=== PATIENT | female | born 1940 | race Caucasian/White ===

== ENCOUNTER 2016-09-27 22:21 | Observation (INO) | payer MEDICARE ==
[2016-09-27] MEDS ORDERED: ASPIRIN 81 MG CHEWABLE TABLET PO ONE (22:45)
[2016-09-27] MEDS: NITROGLYCERIN 0.4MG SL TABLET #25 BTL SL PRN ×3 (22:52→23:07)
[2016-09-27 22:58] LABS: BASO % 0.4 % (0-6); EOS % 3.2 % (0-6); GRAN % 48.8 % (47-80); HEMOGLOBIN 13.5 gm/dl (11.6-16.0); LYMPH % 34.2 % (16-45); MEAN CELL VOLUME 96.3 fl (81-97); MEAN CORPUSCULAR HGB CONC 32.1 g/dl (32-36); MEAN PLATELET VOLUME 10.5 fl (7.4-10.4); MONO % 13.4 % (0-9); PLATELET COUNT 283 K/uL (130-400); RED BLOOD COUNT 4.36 M/uL (3.80-5.40); WHITE BLOOD COUNT W/O DIFF 7.5 K/uL (4.2-12.2)
[2016-09-27 23:08] LABS: ANION GAP 8.7 (7-16); BLOOD UREA NITROGEN 18 mg/dL (7-17); CARBON DIOXIDE 29.3 mmol/L (22-30); CREATINE PHOSPHOKINASE 75 U/L (30-135); CREATININE 0.7 mg/dL (0.52-1.04); EST GLOMERULAR FILTRATION RATE > 60 ml/min; GLUCOSE,RANDOM 94 mg/dL (70-110)
[2016-09-27 23:09] LABS: ALBUMIN 4.3 gm/dL (3.5-5.0); BILIRUBIN,TOTAL 0.41 mg/dL (0.2-1.3); TOTAL PROTEIN 7.6 gm/dL (6.3-8.2)
[2016-09-27 23:29] LABS: TROPONIN I < 0.012 ng/mL (0.00-0.034)
--- NOTE | 2016-09-28 00:36 | Emergency Department Record ---
History of Present Illness - General Chief Complaint: Chest Pain Stated Complaint: CHEST PAIN Time Seen by Provider: 09/27/16 22:24 Source: Patient Mode of Arrival: Wheelchair Limitations: No limitations - History of Present Illness Initial Comments: pt developed chest pain an hour lpta that felt heavy and radiated to her neck with no n or sob. Complaint: Chest pain Onset/Timin -: Hour(s) Onset: During rest Pain Location: Substernal Pain Radiation: Back, Neck Severity: Moderate Quality: Other Consistency: Constant Improves With: Nothing Worsens With: Nothing Other Symptoms: Burping - Related Data Home Medications Medication Instructions Recorded Confirmed Last Taken Acetaminophen 325 mg PO ASDIR PRN 09/27/16 09/27/16 Unknown Gael/D3/Mag11/Zinc/Pneumatic Drum Sander/Asim/Bor 1 each PO DAILY 09/27/16 09/27/16 Unknown [Caltrate 600+D Plus Tablet] Cyanocobalamin (Vitamin B-12) 1 tab PO DAILY 09/27/16 09/27/16 Unknown [Vitamin B-12] Glucosamine HCl 2,000 mg PO DAILY 09/27/16 09/27/16 Unknown Levothyroxine Sodium [Synthroid] 75 mcg PO DAILY 09/27/16 09/27/16 Unknown Losartan Potassium [Losartan 25 mg PO DAILY 09/27/16 09/27/16 Unknown Potassium] Magnesium 1 tab PO DAILY 09/27/16 09/27/16 Unknown Montelukast Sodium 10 mg PO DAILY 09/27/16 09/27/16 Unknown Raloxifene HCl [Evista] 60 mg PO DAILY 09/27/16 09/27/16 Unknown Rosuvastatin Calcium [Crestor] 0.25 tab PO DAILY 09/27/16 09/27/16 Unknown Sertraline HCl [Zoloft] 25 mg PO DAILY 09/27/16 09/27/16 Unknown Zinc 50 mg PO DAILY 09/27/16 09/27/16 Unknown Allergies Allergy/AdvReac Type Severity Reaction Status Date / Time No Known Drug Allergies Allergy Verified 09/27/16 22:32 Travel Screening - Travel/Exposure Within Last 30 Days Have you traveled within the last 30 days?: No - Travel/Exposure Within Last Year Have you traveled outside the [place] in the last year?: No - Additonal Travel Details Have you been exposed to anyone with a communicable illness?: No - Travel Symptoms Symptom Screening: None Review of Systems Reviewed: No additional complaints except as noted below Constitutional: Reports: As per HPI. Denies: Chills, Fever, Malaise, Night sweats, Weakness, Weight change Eyes: Reports: As per HPI. Denies: Eye discharge, Eye pain, Photophobia, Vision change ENT: Reports: As per HPI. Denies: Congestion, Dental pain, Ear pain, Epistaxis , Hearing loss, Throat pain Respiratory: Reports: As per HPI. Denies: Cough, Dyspnea, Hemoptysis, Stridor, Wheezes Cardiovascular: Reports: As per HPI. Denies: Arrhythmia, Chest pain, Dyspnea on exertion, Edema, Murmurs, Orthopnea, Palpitations, Paroxysmal nocturnal dyspnea, Rheumatic Fever, Syncope Endocrine: Reports: As per HPI. Denies: Fatigue, Heat or cold intolerance, Polydipsia, Polyuria Gastrointestinal: Reports: As per HPI. Denies: Abdominal pain, Constipation, Diarrhea, Hematemesis, Hematochezia, Melena, Nausea, Vomiting Genitourinary: Reports: As per HPI. Denies: Abnormal menses, Discharge, Dyspareunia, Dysuria, Frequency, Hematuria, Incontinence, Retention, Urgency Musculoskeletal: Reports: As per HPI. Denies: Arthralgia, Back pain, Gout, Joint swelling, Myalgia, Neck pain Skin: Reports: As per HPI. Denies: Bruising, Change in color, Change in hair/ nails, Lesions, Pruritus, Rash Neurological: Reports: As per HPI. Denies: Abnormal gait, Confusion, Headache, Numbness, Paresthesias, Seizure, Tingling, Tremors, Vertigo, Weakness Psychiatric: Reports: As per HPI. Denies: Anxiety, Auditory hallucinations, Depression, Homicidal thoughts, Suicidal thoughts, Visual hallucinations Hematological/Lymphatic: Reports: As per HPI. 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) - NEURO Hx Neuro Disorders: No - GI Hx GI Disorders: No - Hx Genitourinary Disorders: No - ENDOCRINE Hx Endocrine Disorders: Yes Hx Thyroid Disease: Yes - MUSCULOSKELETAL Hx Musculoskeletal Disorders: No - PSYCH Hx Psych Problems: No - HEMATOLOGY/ONCOLOGY Hx Hematology/Oncology Disorders: No Family Medical History Any Significant Family History?: No Physical Exam - General General Appearance: Alert, Oriented x3, Cooperative, Mild distress - Head Head exam: Normal inspection - Eye Eye exam: Normal appearance, PERRL, EOMI Pupils: Normal accommodation - ENT ENT exam: Normal exam, Mucous membranes moist, Normal external ear exam, Normal orophraynx Ear exam: Normal external inspection. negative: External canal tenderness Nasal Exam: Normal inspection. negative: Discharge, Sinus tenderness Mouth exam: Normal external inspection, Tongue normal Teeth exam: Normal inspection. negative: Dental caries Throat exam: Normal inspection. negative: Tonsillar erythema, Tonsillar exudate - Neck Neck exam: Normal inspection, Full ROM. negative: Tenderness - Respiratory Respiratory exam: Normal lung sounds bilaterally. negative: Respiratory distress - Cardiovascular Cardiovascular Exam: Regular rate, Normal rhythm, Normal heart sounds - GI/Abdominal GI/Abdominal exam: Soft, Normal bowel sounds. negative: Tenderness - Rectal Rectal exam: Deferred - exam: Deferred - Extremities Extremities exam: Normal inspection, Full ROM, Normal capillary refill. negative: Tenderness - Back Back exam: Reports: Normal inspection, Full ROM. Denies: Muscle spasm, Rash noted, Tenderness - Neurological Neurological exam: Alert, CN II-XII intact, Normal gait, Oriented X3 - Psychiatric Psychiatric exam: Normal affect, Normal mood - Skin Skin exam: Dry, Intact, Normal color, Warm Course Vital Signs 09/27/16 09/27/16 09/27/16 22:23 22:26 22:58 Temperature 98.4 F 98 F Pulse Rate 67 Pulse Rate [ Contract Associate Manager ] Pulse Rate [ 73 67 Pulse Ox Probe] Respiratory 20 20 20 Rate Blood Pressure 173/82 Blood Pressure 173/82 127/74 [Left Arm] Pulse Ox 99 99 97 09/27/16 09/27/16 09/27/16 23:05 23:10 23:54 Temperature Pulse Rate Pulse Rate [ 62 Contract Associate Manager ] Pulse Rate [ 76 77 Pulse Ox Probe] Respiratory 20 20 20 Rate Blood Pressure Blood Pressure 126/80 116/71 123/75 [Left Arm] Pulse Ox 97 97 99 - Reevaluation(s) Reevaluation #1: 09/28/16 00:35 pts pain improved w ntg. Medical Decision Making - Lab Data Result diagrams: 09/27/16 22:40 09/27/16 22:40 Lab Results 09/27/16 09/27/16 09/27/16 Range/Units 22:40 22:40 22:40 WBC 7.5 (4.2-12.2) K/uL RBC 4.36 (3.80-5.40) M/uL Hgb 13.5 (11.6-16.0) gm/dl Hct 42.0 (35.0-47.0) % MCV 96.3 (81-97) fl MCH 31.0 (27-33) pg MCHC 32.1 (32-36) g/dl RDW 13.0 (11.5-14.5) % Plt Count 283 (130-400) K/uL MPV 10.5 H (7.4-10.4) fl Gran % 48.8 (47-80) % Lymphocytes % 34.2 (16-45) % Monocytes % 13.4 H (0-9) % Eosinophils % 3.2 (0-6) % Basophils % 0.4 (0-6) % D-Dimer 0.49 (0-0.59) mg/L FEU Sodium 143 (136-145) mmol/L Potassium 4.1 (3.5-5.1) mmol/L Chloride 105 (98-107) mmol/L Carbon Dioxide 29.3 (22-30) mmol/L Anion Gap 8.7 (7-16) BUN 18 H (7-17) mg/dL Creatinine 0.7 (0.52-1.04) mg/dL Estimated GFR > 60 ml/min Random Glucose 94 (70-110) mg/dL Calcium 9.4 (8.5-10.1) mg/dL Total Bilirubin (0.2-1.3) mg/dL Direct Bilirubin (0-0.3) mg/dL AST (14-36) U/L ALT (9-52) U/L Alkaline Phosphatase (38-126) U/L Creatine Kinase 75 (30-135) U/L CK-MB (CK-2) 1.0 (0-6) ug/L Myoglobin 40.7 (0.0-61.5) ng/mL Troponin I < 0.012 (0.00-0.034) ng/mL NT-Pro-B Natriuret Pep 46.20 (<125) pg/mL Total Protein (6.3-8.2) gm/dL Albumin (3.5-5.0) gm/dL 09/27/16 Range/Units 22:40 WBC (4.2-12.2) K/uL RBC (3.80-5.40) M/uL Hgb (11.6-16.0) gm/dl Hct (35.0-47.0) % MCV (81-97) fl MCH (27-33) pg MCHC (32-36) g/dl RDW (11.5-14.5) % Plt Count (130-400) K/uL MPV (7.4-10.4) fl Gran % (47-80) % Lymphocytes % (16-45) % Monocytes % (0-9) % Eosinophils % (0-6) % Basophils % (0-6) % D-Dimer (0-0.59) mg/L FEU Sodium (136-145) mmol/L Potassium (3.5-5.1) mmol/L Chloride (98-107) mmol/L Carbon Dioxide (22-30) mmol/L Anion Gap (7-16) BUN (7-17) mg/dL Creatinine (0.52-1.04) mg/dL Estimated GFR ml/min Random Glucose (70-110) mg/dL Calcium (8.5-10.1) mg/dL Total Bilirubin 0.41 (0.2-1.3) mg/dL Direct Bilirubin 0.0 (0-0.3) mg/dL AST 20 (14-36) U/L ALT 18 (9-52) U/L Alkaline Phosphatase 82 (38-126) U/L Creatine Kinase (30-135) U/L CK-MB (CK-2) (0-6) ug/L Myoglobin (0.0-61.5) ng/mL Troponin I (0.00-0.034) ng/mL NT-Pro-B Natriuret Pep (<125) pg/mL Total Protein 7.6 (6.3-8.2) gm/dL Albumin 4.3 (3.5-5.0) gm/dL Disposition Disposition: Admit Clinical Impression: Chest pain Qualifiers: Chest pain type: unspecified Qualified Code(s): R07.9 - Chest pain, unspecified Disposition: Still a Patient at [facility] Decision to Admit: Admit from ER Decision to Admit Date: 09/28/16 Decision to Admit Time: 01:13 Forms: Patient Portal Access
[2016-09-28] MEDS ORDERED: NITROGLYCERIN 0.4MG SL TABLET #25 BTL SL PRN (01:52)
[2016-09-28] MEDS ORDERED: TEMAZEPAM 15 MG CAPSULE PO PRN (01:52)
--- NOTE | 2016-09-28 08:13 | RADIOLOGY REPORT ---
EXAM: CHEST, TWO VIEWS HISTORY: DIFFICULTY BREATHING. TECHNIQUE: Frontal and lateral views of the chest were obtained. Comparison: None. FINDINGS: The heart size is normal. Osteopenia. Tiny bibasilar effusions seen on the lateral view. COPD. No pneumothorax. IMPRESSION: COPD. TINY BIBASILAR EFFUSIONS. JOB NUMBER: [id number] MTDD
[2016-09-28 09:12] LABS: LDL CHOLESTEROL/MEASURED 77.7 mg/dL (0-100)
[2016-09-28] MEDS ORDERED: ACETAMINOPHEN 325 MG TAB PO PRN (09:24)
[2016-09-28] MEDS ORDERED: ASPIRIN 325 MG TAB ENTERIC-COATED PO SCH (10:00)
[2016-09-28] MEDS ORDERED: SERTRALINE HCL 50 MG TABLET PO SCH (10:00)
[2016-09-28] MEDS ORDERED: LOSARTAN POTASSIUM 25 MG TABLET PO SCH ×2 (10:00)
[2016-09-28] MEDS ORDERED: LEVOTHYROXINE SODIUM 75 MCG TABLET PO SCH (10:00)
--- NOTE | 2016-09-28 12:13 | Discharge Note ---
VTE H&P Assessment - Risk for VTE Risk for VTE: No Risk Level: Very Low Risk Assessment Date: 09/27/16 Risk Assessment Time: 08:10 VTE Orders Placed or Will Be Placed: No VTE Reason for No Prophylaxis: Not Indicated Discharge Medications - Discharge Medications Prescriptions: Aspirin [Aspirin EC] 325 mg PO DAILY #30 tablet. Nitroglycerin [Nitrostat] 0.4 mg SL ASDIR #30 tab.subl Home Medications: Ambulatory Orders Acetaminophen 325 mg PO ASDIR PRN 09/27/16 [Last Taken Unknown] Gael/D3/Mag11/Zinc/Medical Resident/Asim/Bor [Caltrate 600+D Plus Tablet] 1 each PO DAILY 11/06 [Last Taken Unknown] Cyanocobalamin (Vitamin B-12) [Vitamin B-12] 1 tab PO DAILY 09/27/16 [Last Taken Unknown] Glucosamine HCl 2,000 mg PO DAILY 09/27/16 [Last Taken Unknown] Levothyroxine Sodium [Synthroid] 75 mcg PO DAILY 09/27/16 [Last Taken Unknown] Losartan Potassium 12.5 mg PO DAILY 09/27/16 [Last Taken Unknown] Magnesium 1 tab PO DAILY 09/27/16 [Last Taken Unknown] Montelukast Sodium 10 mg PO DAILY 09/27/16 [Last Taken Unknown] Raloxifene HCl [Evista] 60 mg PO DAILY 09/27/16 [Last Taken Unknown] Rosuvastatin Calcium [Crestor] 0.25 tab PO DAILY 09/27/16 [Last Taken Unknown] Sertraline HCl [Zoloft] 25 mg PO DAILY 09/27/16 [Last Taken Unknown] Zinc 50 mg PO DAILY 09/27/16 [Last Taken Unknown] Aspirin [Aspirin EC] 325 mg PO DAILY #30 tablet. 09/28/16 [Last Taken Unknown] Nitroglycerin [Nitrostat] 0.4 mg SL ASDIR #30 tab.subl 09/28/16 [Last Taken Unknown] Discharge Note - Date Date of Discharge Note: 09/28/16 Disposition: Home, Self-Care Condition: (1) Good Additional Instructions: consult with Dr Sanchez tomorrow for a stress test Only walking till stress test is done follow up with Dr. Cheatham in one week Prescriptions: Aspirin [Aspirin EC] 325 mg PO DAILY #30 tablet. Nitroglycerin [Nitrostat] 0.4 mg SL ASDIR #30 tab.subl Referrals: ERIN ROMERO [Primary Care Provider] - Forms: Patient Portal Access
[2016-09-28] MEDS ORDERED: MONTELUKAST SODIUM 10MG TABLET PO SCH (22:00)
[2016-09-28] MEDS ORDERED: ROSUVASTATIN 5 MG PO SCH (22:00)
[2016-09-28] MEDS ORDERED: RALOXIFENE 60 MG PO SCH (22:00)
--- NOTE | 2016-09-29 10:15 | History and Physical Report ---
DATE OF EVALUATION: 09/28/2016 at 7:30 a.m. DATE OF ADMISSION: 09/28/2016 CHIEF COMPLAINT: Chest pain. HISTORY OF CHIEF COMPLAINT: This 76-year-old female yesterday was sitting at about 4:30 taking a nap in a chair. She felt a funny feeling in her throat. Then the felt some heaviness in her chest. It seemed to go away. At about 9 p.m., she developed some heaviness in her chest again with some radiation up into her throat. Came to the Emergency Department and evaluated by Dr. Robbins. Given 3 nitroglycerin at 90% to 100% gone at that time. Patient was then admitted to the hospital. When I went in to see her at 7:30 a.m. this morning, she was sleeping. She woke up and said she was feeling much better. No chest pain or no neck pain. She states that she does exercise 3 times a week on a treadmill for 30 minutes and no problems with that. The last time she walked on the treadmill was about a week ago, though, and she has starting some exercise, kind of stretching exercises, but she does not think she hurt herself doing any of that. The first set of cardiac enzymes were negative. EKG showing normal sinus rhythm with no acute changes, and also this morning's EKG was normal sinus rhythm with no acute changes. PAST MEDICAL HISTORY: She has had asthma the last 5 or 6 years. Hypercholesterolemia. Hypothyroidism. Hypertension. She has had a history of atrial fibrillation about 10 or 15 years ago, caffeine-induced. Treated by Dr. Fazal MUSE. Currently, she sees Dr. Tray Gomez. PAST SURGICAL HISTORY: Hysterectomy, cholecystectomy, breast biopsy, bilateral bunionectomy. MEDICATIONS ON ADMISSION: Calcium and vitamin D 1 a day, sertraline 25 mg daily, glucosamine chondroitin 2000 mg a day, Crestor quarter-tablet daily (I assume that is 5 mg or 10 mg, it is hard to imagine a quarter of a tablet), Evista 60 mg daily, Singulair 10 mg daily, losartan 25 mg daily, and levothyroxine 75 mcg daily. Also, zinc 50 mg daily, cyanocobalamin 1 tablet a day, magnesium 1 tablet a day, Tylenol p.r.n. ALLERGIES: No known drug allergies. FAMILY PSYCHOSOCIAL HISTORY: She has never smoked cigarettes. No alcohol or drug use. There is no significant family history. REVIEW OF SYSTEMS: HEENT: No upper respiratory infection symptoms, cough, cold, or congestion. Cardiovascular: See Chief Complaint. She had some neck pain and chest heaviness radiating up into the neck. Gone at this time. Respiratory: No cough, cold or congestion. Gastrointestinal: No nausea, vomiting, diarrhea, black stools, or bloody stools. Genitourinary: No dysuria, hematuria, frequency, or burning on urination. Musculoskeletal: No joint or bony abnormalities. Neurologic: No CVA, paralysis, or paresthesias. Endocrine: She has hypothyroidism. No diabetes. Integument: No rash, ulcers, changes in moles, or yellow skin. PHYSICAL EXAMINATION: VITAL SIGNS: Height is 5'2". Weight 147 pounds. Pulse 58-67. Blood pressure 133/64. Respiratory rate 12. Pulse ox 97% on room air. HEENT: Pupils equal, round, and reactive to light and accommodation. Extraocular muscles intact. Funduscopic exam is benign. Tympanic membranes hamilton. NECK: Supple. No jugular venous distention. No hepatojugular reflux. No carotid bruits. Thyroid is smooth. CARDIOVASCULAR: Regular rate and rhythm without murmurs, clicks, rubs, or gallops. RESPIRATORY: Clear to auscultation and percussion. ABDOMEN: Soft, nontender, no hepatosplenomegaly. No masses or tenderness. Bowel sounds active. No bruits. EXTREMITIES: No pitting edema. No cyanosis or clubbing. Full range of motion. Peripheral pulses good. BREASTS: Deferred. GYNECOLOGIC: Deferred. RECTAL: Deferred. NEUROLOGIC: Cranial nerves II-XII intact. No gross deficits. Sensation normal. Strength normal. Deep tendon reflexes equal bilaterally. Babinski is negative. MENTAL STATUS: Alert and oriented x3. IMPRESSION: 1. Chest pain, none at this time. 2. Possible angina. 3. History of hypertension. 4. History of hypercholesterolemia. 5. History of hypothyroidism. 6. History of asthma. PLAN: Serial cardiac enzymes. Will discuss the case with Dr. Gomez and possibly referral for stress test. Patient did request to go home today. [facility]
--- NOTE | 2016-09-30 11:00 | Discharge Summary ---
DATE OF SERVICE: 09/28/2016. ATTENDING PHYSICIAN: Costa Reyes DO. DISCHARGE DIAGNOSES: 1. Chest pain. 2. Stable angina. 3. Myocardial infarction ruled out. 4. Status post hypercholesterolemia. 5. Status post hypothyroidism. 6. Status post asthma. 7. Status post anxiety. CHIEF COMPLAINT: Chest pain. The chest pain started about 4:30 p.m. yesterday. Small episode of it with a little tightness in her neck. She had another episode about 9 p.m. with tightness in her neck and heaviness in her chest. She became concerned. Came in to the ER for evaluation. Seen by Dr. Robbins. Given 3 nitroglycerin sublingual. Pretty much took the chest pain away. She is chest pain free today at my examination. She is feeling much better, however, concerned this sounds like angina. CURRENT MEDICATIONS: Continue her home medications and also an aspirin a day at 325 daily. Her home medications are: 1. Levothyroxine 75 mcg q.daily. 2. Losartan 25 mg q.daily. 3. Singulair 10 mg q.daily. 4. Evista 60 mg q.daily. 5. Crestor 5 mg tablets 1/4 of a tablet q.daily. 6. Glucosamine and chondroitin 2000 mg per day. 7. Sertraline 25 mg q.daily. 8. Calcium with vitamin D once a day. 9. Cyanocobalamin 1 a day. 10. Magnesium 1 a day. 11. Zinc 50 mg once a day. 12. Tylenol p.r.n. HOSPITAL COURSE: Therapy provided: Patient was monitored, cardiac monitoring, serial cardiac enzymes. She had 2 cardiac enzymes, which were negative, both troponin-I and CK-MB. Her EKGs x 2 were normal sinus rhythm with no acute changes. She is chest pain free. Would like to go home. Will follow up with Dr. Sanchez. She had seen Dr. Diehl about 10 years ago for an episode of atrial fibrillation secondary to caffeine. Will consult Dr. Sanchez for a stress test, hopefully in the morning. CONDITION AT DISCHARGE: Stable and improved. DISCHARGE INSTRUCTIONS: 1. Followup with Dr. Sanchez tomorrow for a stress test. 2. Followup with Dr. Gomez, her primary doctor, in 1 week. 3. Patient is to return to the emergency department if she has more chest pain, for reevaluation. [facility]
== END 2016-09-28 15:22 | disposition home or self-care (01) ==
LOC: ER 22:21 → MEDSURG 09-28 01:50
PROVIDERS: ADMIT Emergency Medicine; ATTEND Emergency Medicine
DX: R07.9 Chest pain, unspecified (principal); I20.8 Other forms of angina pectoris; E78.00 Pure hypercholesterolemia, unspecified; E03.9 Hypothyroidism, unspecified; J45.909 Unspecified asthma, uncomplicated
CPT/HCPCS: 93041; 99285 ×2; 94760 ×2; 82550; 85025; 80076; 83874; 82553 ×2; 84484 ×2; 80048; 80061; 85379; 83880; 71020; 93005 ×2; 93010 ×2; G0378; 99236

== ENCOUNTER 2018-02-04 09:23 | Day surgery (SDC) | payer MEDICARE ==
[2018-02-04] MEDS ORDERED: PROPOFOL 10 MG/ML VIAL IV ONE (09:24)
[2018-02-04] MEDS ORDERED: LIDOCAINE 2% MDV (20MG/ML) 20ML VIAL IV ONE (09:24)
--- NOTE | 2018-02-05 10:00 | Operative Note ---
DATE OF SURGERY: 02/04/2018 OPERATION: COLONOSCOPY to the cecum. INDICATION: Colorectal cancer screening. Last examination was 8 years ago. ANESTHESIA: Intravenous sedation was administered by the department of anesthesiology and included Diprivan titrated to effect. PROCEDURE: Following informed consent from this alert individual including a discussion of the risks and benefits of the procedure and an opportunity for the patient to ask questions, the patient was in the left lateral decubitus position. A digital rectal examination was performed. No abnormalities were noted. Following this, the Olympus [id number] video colonoscope was inserted into the rectum without resistance. The rectal mucosa had a normal appearance with normal folds and distensibility. The colonoscope was advanced up through the colon to the level of the cecum without much difficulty, although there was some redundancy to the colon and abdominal pressure support was supplied by the nursing staff to facilitate reaching the cecum. Throughout the bowel the mucosa appeared normal, the folds were normal, and the bowel was fairly well distensible. There were scattered diverticula noted in the sigmoid colon. The cecum was defined by noting the appendiceal orifice and ileocecal valve. The colon preparation overall was good. Some washing and suctioning was employed to facilitate adequate visualization. From the cecum, the colonoscope was then slowly withdrawn. No abnormalities were detected until the sigmoid colon was reached. Again diverticulosis was noted. Retroflexion in the rectum was endoscopically unremarkable. The instrument was straightened and removed. The patient tolerated the procedure well and was returned to the recovery area in stable condition. IMPRESSION: 1. Sigmoid diverticulosis. 2. Otherwise unremarkable colonoscopy to the cecum. RECOMMENDATIONS: The patient was advised to have screening colonoscopy in 10 years' time if she desires at age 87. Followup will be with Dr. Tray Gomez. As always, thank you for allowing me to participate in the care of your patient. CC: Dr. Tray CARTY
== END 2018-02-04 12:02 | disposition home or self-care (01) ==
LOC: HOP 09:23
PROVIDERS: ATTEND Internal Medicine Gastroenterology
DX: Z12.11 Encounter for screening for malignant neoplasm of colon (principal); K57.30 Diverticulosis of large intestine without perforation or abscess without bleeding
CPT/HCPCS: 00812; G0121

== ENCOUNTER 2018-04-22 13:11 | Emergency (ER) | payer MEDICARE ==
[2018-04-22] MEDS ORDERED: ASPIRIN 81 MG CHEWABLE TABLET PO ONE (13:31)
[2018-04-22 13:45] LABS: BASO % 0.4 % (0-6); EOS % 2.6 % (0-6); GRAN % 51.5 % (47-80); HEMATOCRIT 41.5 % (35.0-47.0); HEMOGLOBIN 13.7 gm/dl (11.6-16.0); LYMPH % 36.4 % (16-45); MEAN CELL VOLUME 96.1 fl (81-97); MEAN CORPUSCULAR HEMOGLOBIN 31.7 pg (27-33); MEAN PLATELET VOLUME 10.3 fl (7.4-10.4); MONO % 9.1 % (0-9); PLATELET COUNT 281 K/uL (130-400); RED BLOOD COUNT 4.32 M/uL (3.80-5.40); RED CELL DISTRIBUTION WIDTH 13.5 % (11.5-14.5); WHITE BLOOD COUNT W/O DIFF 7.4 K/uL (4.2-12.2)
[2018-04-22 13:53] LABS: BLOOD UREA NITROGEN 16 mg/dL (8-23); CREATININE 0.6 mg/dL (0.5-0.9); EST GLOMERULAR FILTRATION RATE > 60 mL/min
[2018-04-22 13:56] LABS: GLUCOSE,RANDOM 117 mg/dL (74-109)
[2018-04-22 13:59] LABS: CREATINE PHOSPHOKINASE 68 U/L (26-192)
[2018-04-22 14:00] LABS: CKMB 2.9 ng/mL (<3.77)
[2018-04-22 14:11] LABS: THYROID STIMULATING HORMONE 0.47 uIU/mL (0.270-4.20)
--- NOTE | 2018-04-22 16:38 | Emergency Department Record ---
History of Present Illness - General Chief Complaint: Rapid heartbeat Stated Complaint: RAPID HEART BEAT Time Seen by Provider: 04/22/18 13:20 Source: Patient Mode of Arrival: Ambulatory Limitations: No limitations - History of Present Illness Initial Comments: pt has been having palpitations last night after she had part of a drink. once again it started up today. she denies cp. she states she listened to her heart and it sounded irregular. she tried holding her breath and putting her face into ice water without success MD Complaint: Palpitations Context: Occurred during rest Arrythmia History: Other (she has had rapid hr) Associated Symptoms: Denies other symptoms - Related Data Previous Rx's Medication Instructions Recorded Amiodarone HCl [Pacerone] 200 mg PO BID #20 tablet 04/22/18 Apixaban [Eliquis] 5 mg PO BID #20 tablet 04/22/18 Allergies Allergy/AdvReac Type Severity Reaction Status Date / Time No Known Drug Allergies Allergy Verified 04/22/18 13:19 Travel Screening - Travel/Exposure Within Last 30 Days Have you traveled within the last 30 days?: No Review of Systems Reviewed: No additional complaints except as noted below Constitutional: Reports: As per HPI. Denies: Chills, Fever, Malaise, Night sweats, Weakness, Weight change Eyes: Reports: As per HPI. Denies: Eye discharge, Eye pain, Photophobia, Vision change ENT: Reports: As per HPI. Denies: Congestion, Dental pain, Ear pain, Epistaxis , Hearing loss, Throat pain Respiratory: Reports: As per HPI. Denies: Cough, Dyspnea, Hemoptysis, Stridor, Wheezes Cardiovascular: Reports: As per HPI, Palpitations. Denies: Arrhythmia, Chest pain, Dyspnea on exertion, Edema, Murmurs, Orthopnea, Paroxysmal nocturnal dyspnea, Rheumatic Fever, Syncope Endocrine: Reports: As per HPI. Denies: Fatigue, Heat or cold intolerance, Polydipsia, Polyuria Gastrointestinal: Reports: As per HPI. Denies: Abdominal pain, Constipation, Diarrhea, Hematemesis, Hematochezia, Melena, Nausea, Vomiting Genitourinary: Reports: As per HPI. Denies: Abnormal menses, Discharge, Dyspareunia, Dysuria, Frequency, Hematuria, Incontinence, Retention, Urgency Musculoskeletal: Reports: As per HPI. Denies: Arthralgia, Back pain, Gout, Joint swelling, Myalgia, Neck pain Skin: Reports: As per HPI. Denies: Bruising, Change in color, Change in hair/ nails, Lesions, Pruritus, Rash Neurological: Reports: As per HPI. Denies: Abnormal gait, Confusion, Headache, Numbness, Paresthesias, Seizure, Tingling, Tremors, Vertigo, Weakness Psychiatric: Reports: As per HPI. Denies: Anxiety, Auditory hallucinations, Depression, Homicidal thoughts, Suicidal thoughts, Visual hallucinations Hematological/Lymphatic: Reports: As per HPI. Denies: Anemia, Blood Clots, Easy bleeding, Easy bruising, Swollen glands Past Medical History - SOCIAL HISTORY Smoking Status: Never smoker Alcohol Use: None Drug Use: None - RESPIRATORY Hx Respiratory Disorders: Yes Hx Asthma: Yes Hx Bronchitis: No Hx COPD: No Hx Dyspnea: No Hx Pneumonia: No Hx Pulmonary Embolism: No Hx Sleep Apnea: No Hx Tuberculosis: No Hx of CPAP: No - CARDIOVASCULAR Hx Cardio Disorders: Yes Hx Abnormal EKG: No Hx Cardiac Cath: No Hx Chest Pain: No Hx CHF: No Hx Edema: No Hx Heart Attack: No Hx Hypertension: Yes Hx Irregular Heartbeat: Yes (afib) Hx Palpitations: No Hx Pacemaker/Defib: No Hx Coronary Artery Disease: No Hx Coronary Artery Bypass Graft: No Hx Coronary Stent: No Hx Percutaneous Transluminal Coronary Angioplasty (PTCA): No Comment:: high cholesterol - NEURO Hx Neuro Disorders: No Hx Headaches: No Hx Parkinson's Disease: No Hx Seizures: No Hx Speech Problem: No - GI Hx GI Disorders: Yes Hx Abdominal Pain: No Hx Celiac Disease: No Hx Crohn's Disease: No Hx Diverticulitis: No Hx GI Bleed: No Hx Reflux: No Hx Hepatitis/Jaundice: No Hx Hiatal Hernia: No Hx Irritable Bowel: No Hx Liver Disease: No Hx Nausea/Vomiting: No Hx Obstructive Bowel: No Hx Pancreatitis: No Hx Rectal Bleeding: No Hx Ulcer: Yes (gastric) Hx Wt Loss/Wt Gain: No Hx Cirrhosis: No Hx of Polyps: No - Hx Genitourinary Disorders: No Hx Bladder Problem: No Hx Dialysis: No Hx Kidney Stones: No Hx Renal Disease: No Hx UTI: No - ENDOCRINE Hx Endocrine Disorders: Yes Hx Diabetes: No Hx Thyroid Disease: Yes - MUSCULOSKELETAL Hx Musculoskeletal Disorders: No Hx Arthritis: No Hx Back Injury: No Hx Osteoporosis: No - PSYCH Hx Psych Problems: Yes Hx Depression: Yes - HEMATOLOGY/ONCOLOGY Hx Hematology/Oncology Disorders: Yes Hx Cancer: Yes (squamous cell skin) Hx Blood Transfusions: No Family Medical History Any Significant Family History?: Yes Hx Cancer: Mother, Grandparents Physical Exam - General General Appearance: Alert, Oriented x3, Cooperative, Mild distress - Head Head exam: Normal inspection - Eye Eye exam: Normal appearance, PERRL, EOMI Pupils: Normal accommodation - ENT ENT exam: Normal exam, Mucous membranes moist, Normal external ear exam, Normal orophraynx, TM's normal bilaterally Ear exam: Normal external inspection. negative: External canal tenderness Nasal Exam: Normal inspection. negative: Discharge, Sinus tenderness Mouth exam: Normal external inspection, Tongue normal Teeth exam: Normal inspection. negative: Dental caries Throat exam: Normal inspection. negative: Tonsillar erythema, Tonsillar exudate - Neck Neck exam: Normal inspection, Full ROM. negative: Tenderness - Respiratory Respiratory exam: Normal lung sounds bilaterally. negative: Respiratory distress - Cardiovascular Cardiovascular Exam: Normal heart sounds, Irregular rhythm, Tachycardia, Other ( paroxsymal afib) - GI/Abdominal GI/Abdominal exam: Soft, Normal bowel sounds. negative: Tenderness - Rectal Rectal exam: Deferred - exam: Deferred - Extremities Extremities exam: Normal inspection, Full ROM, Normal capillary refill. negative: Tenderness - Back Back exam: Reports: Normal inspection, Full ROM. Denies: Muscle spasm, Rash noted, Tenderness - Neurological Neurological exam: Alert, CN II-XII intact, Normal gait, Oriented X3 - Psychiatric Psychiatric exam: Normal affect, Normal mood - Skin Skin exam: Dry, Intact, Normal color, Warm Course Vital Signs 04/22/18 04/22/18 04/22/18 13:13 13:47 14:38 Temperature 98.0 F Pulse Rate 78 Pulse Rate [ 123 H 66 Svp Of Digital ] Respiratory 20 20 18 Rate Blood Pressure 153/84 Blood Pressure 160/80 140/66 [Right Arm] Pulse Ox 100 97 98 04/22/18 15:40 Temperature Pulse Rate Pulse Rate [ 69 Svp Of Digital ] Respiratory 18 Rate Blood Pressure Blood Pressure 146/68 [Right Arm] Pulse Ox 99 - Reevaluation(s) Reevaluation #1: 04/22/18 16:40 pt had intermittent afib for 30 minutes after arrival with rates up to 140. the bouts would last 30 secs to 1 minute. Reevaluation #2: 04/22/18 16:43 pt is converted to sinus. pt d/w dr Morales Medical Decision Making - Lab Data Result diagrams: 04/22/18 13:25 04/22/18 13:25 Lab Results 04/22/18 04/22/18 04/22/18 Range/Units 13:25 13:25 13:25 WBC 7.4 (4.2-12.2) K/uL RBC 4.32 (3.80-5.40) M/uL Hgb 13.7 (11.6-16.0) gm/dl Hct 41.5 (35.0-47.0) % MCV 96.1 (81-97) fl MCH 31.7 (27-33) pg MCHC 33.0 (32-36) g/dl RDW 13.5 (11.5-14.5) % Plt Count 281 (130-400) K/uL MPV 10.3 (7.4-10.4) fl Gran % 51.5 (47-80) % Lymphocytes % 36.4 (16-45) % Monocytes % 9.1 H (0-9) % Eosinophils % 2.6 (0-6) % Basophils % 0.4 (0-6) % D-Dimer 1.23 H (0-0.59) mg/L FEU Sodium 141 (136-145) mmol/L Potassium 3.9 (3.4-4.5) mmol/L Chloride 102 (98-107) mmol/L Carbon Dioxide 26.0 (22-29) mmol/L Anion Gap 13.0 (7-16) BUN 16 (8-23) mg/dL Creatinine 0.6 (0.5-0.9) mg/dL Estimated GFR > 60 mL/min Random Glucose 117 H (74-109) mg/dL Calcium 9.7 (8.8-10.2) mg/dL Creatine Kinase 68 (26-192) U/L CK-MB (CK-2) 2.9 (<3.77) ng/mL Troponin T < 0.010 (0-0.010) ng/mL TSH 0.47 (0.270-4.20) uIU/mL Disposition Disposition: Discharge Clinical Impression: Paroxysmal atrial fibrillation Disposition: Home, Self-Care Condition: (1) Good Instructions: Amiodarone (By mouth), Apixaban (By mouth), A-fib (Atrial Fibrillation) (ED) Additional Instructions: follow up with family doctor and plant packer on sunday. return sooner if worse. Prescriptions: Amiodarone HCl [Pacerone] 200 mg PO BID #20 tablet Apixaban [Eliquis] 5 mg PO BID #20 tablet Referrals: GERHARD ROSADO M.D. [MEDICAL DOCTOR] - [facility] [Provider Group] Quality - Quality Measures Quality Measures: N/A - Blood Pressure Screening Does Patient Have Any of the Following: No Blood Pressure Classification: Pre-Hypertensive BP Reading Systolic Measurement: 153 Diastolic Measurement: 84 Screening for High Blood Pressure: < Pre-Hypertensive BP, F/U Documented > [ [id number]] Pre-Hypertensive Follow-up Interventions: Follow-up with rescreen every year.
[2018-04-22] MEDS ORDERED: AMIODARONE HCL 200 MG TABLET PO ONE (16:43)
[2018-04-22] MEDS ORDERED: APIXABAN 5MG TABLET PO SCH (16:45)
[2018-04-22] MEDS ORDERED: APIXABAN 5MG TABLET PO ONE (16:47)
--- NOTE | 2018-04-22 17:02 | CT ANGIOGRAM REPORT ---
DATE: 04/22/2018. EXAM: CTA OF THE CHEST WITH CONTRAST. HISTORY: RAPID HEARTBEAT. TECHNIQUE: CTA of the chest was performed after the intravenous administration of 80 mL of Omnipaque 350 contrast material. Sagittal and coronal MIP images were performed on an independent work station. COMPARISON: None. FINDINGS: No mass or filling defect to suggest pulmonary embolism. The heart and pericardium appear normal. No mediastinal or hilar lymphadenopathy. No infiltrate or pleural effusion. The visualized upper abdominal structures are normal. IMPRESSION: 1. NEGATIVE FOR PULMONARY EMBOLISM. 2. NO ACUTE PULMONARY DISEASE PROCESS. JOB NUMBER: [id number] MTDD
== END 2018-04-22 17:14 | disposition home or self-care (01) ==
LOC: ER 13:11
DX: I48.0 Paroxysmal atrial fibrillation (principal); I10 Essential (primary) hypertension; Z79.01 Long term (current) use of anticoagulants
CPT/HCPCS: 99284 ×2; 82550; 85025; 82553; 80048; 84443; 84484; 85379; 71275; 93005; 93010; Q9967; J3490